=== PATIENT | female | born 1975 | race Caucasian/White ===

== ENCOUNTER 2017-08-19 11:49 | Outpatient (CLI) | payer BC | END 2017-08-19 11:50 | disposition critical access hospital (66) | LOC: EMS 11:49 | PROVIDERS: ATTEND Surgery | DX: M54.5 Low back pain (principal); W18.30XA Fall on same level, unspecified, initial encounter; Y93.01 Activity, walking, marching and hiking; Y92.009 Unspecified place in unspecified non-institutional (private) residence as the place of occurrence of the external cause | CPT/HCPCS: A0425; A0429 ==

== ENCOUNTER 2017-08-19 12:28 | Emergency (ER) | payer BC ==
--- NOTE | 2017-08-19 14:32 | ED Physician Documentation ---
PD HPI BACK INJURY - Stated complaint Stated Complaint: GLF - History obtained from History obtained from: Patient - History of Present Illness Location: Lower Type of injury: Fall (she says she fell on way to bathroom this morning and felt pain in thoracolumbar area. Pain with movement and is unable to sit or stand without considerable pain. No leg weakness nor numbness. Has had prior compression fractures from bone mets due to stage 4 breast CA. She is due to be seen at [facility] in [facility] tomorrow for new chemo med and possible platelet transfusion. Has baseline back pain and takes oral dilaudid 2 mg 3-4 times daily. This is not helping the current new pain.) Where injury occurred: Home Timing - onset: Today (this morning) Timing - details: Abrupt onset Quality: Pain, Similar to prior episodes Worsened by: Moving Associated symptoms: No: Fever, Weakness, Numbness, Incontinent of urine Contributing factors: No: Anticoagulated (but has thrombocytopenia) Similar symptoms before: Diagnosis (compression fractures with injury due to spine mets. Has had rib fractures too.) Review of Systems Constitutional: denies: Fever Nose: denies: Rhinorrhea / runny nose, Congestion Throat: denies: Sore throat Cardiac: denies: Chest pain / pressure, Palpitations Respiratory: denies: Dyspnea, Cough GI: reports: Abdominal Swelling (feels some bloated). denies: Abdominal Pain, Nausea, Vomiting, Diarrhea : denies: Dysuria, Frequency Skin: denies: Abrasion (s), Laceration (s) Musculoskeletal: reports: Back pain Neurologic: reports: Generalized weakness. denies: Focal weakness, Numbness, Altered mental status, Headache, Head injury PD PAST MEDICAL HISTORY - Past Medical History Cardiovascular: None Respiratory: None Neuro: None Other Past Medical History: Pt has metastatic breast CA and bone CA - Present Medications Home Medications: Ambulatory Orders Medication Instructions Recorded Confirmed Cyclobenzaprine [Flexeril] 10 mg 08/19/17 Dexamethasone 2 mg 08/19/17 HYDROmorphone [Dilaudid] 2 mg 08/19/17 Lorazepam [Ativan] 0.5 mg 08/19/17 oxyCODONE ER [OxyCONTIN] 10 mg 08/19/17 - Allergies Allergies/Adverse Reactions: Allergies Allergy/AdvReac Type Severity Reaction Status Date / Time Latex, Natural Rubber Allergy Mild Rash Verified 08/19/17 12:41 Penicillins Allergy Mild Rash Verified 08/19/17 12:41 - Social History Does the pt smoke?: No Smoking Status: Never smoker PD ED PE NORMAL - Vitals Vital signs reviewed: Yes - General General: Alert and oriented X 3, Well developed/nourished - HEENT HEENT: Atraumatic, Pharynx benign - Neck Neck: Supple, no meningeal sign, No adenopathy - Cardiac Cardiac: RRR (tachycardic), No murmur - Respiratory Respiratory: Clear bilaterally, Other (no noted chestwall tenderness) - Abdomen Abdomen: Normal bowel sounds, Soft, Non tender, No organomegaly, Other (mild distension with decreased bowel sounds, and mild general tenderness. ) - Female Female : Deferred - Rectal Rectal: Deferred - Back Back: No CVA TTP, Other (tender in thoracolumbar area of spine/back. ) - Derm Derm: Warm and dry. No: Normal color (pallor) - Extremities Extremities: No tenderness to palpate, Normal ROM s pain, No edema - Neuro Neuro: Alert and oriented X 3, No motor deficit, Normal speech Eye Opening: Spontaneous Motor: Obeys Commands Verbal: Oriented GCS Score: 15 - Psych Psych: Normal mood Results - Vitals Vitals: Vital Signs - 24 hr 08/19/17 08/19/17 08/19/17 12:31 15:24 18:19 Temperature 36.7 C 36.3 C L Heart Rate 111 H 94 78 Respiratory 16 16 16 Rate Blood Pressure 125/86 H 127/91 H 108/76 O2 Saturation 94 95 96 08/19/17 08/19/17 08/19/17 19:00 19:30 20:00 Temperature Heart Rate 76 77 78 Respiratory 16 16 18 Rate Blood Pressure 111/76 111/77 109/82 H O2 Saturation 95 95 95 Oxygen O2 Source Room air - Labs Labs: Laboratory Tests 08/19/17 08/19/17 15:15 15:15 WBC 19.1 H RBC 2.98 L Hgb 8.6 L Hct 27.1 L MCV 91.0 MCH 28.8 MCHC 31.7 L RDW 24.8 H Plt Count 18 L* MPV 9.9 Neut # Not Reportable Lymph # Not Reportable Stevens # Not Reportable Eos # Not Reportable Baso # Not Reportable Absolute Nucleated RBC Not Reportable Total Counted 100 Band Neuts % (Manual) 4 Abnorm Lymph % (Manual) 0 Nucleated RBC % Not Reportable Neutrophils # (Manual) 16.4 H Lymphocytes # (Manual) 1.7 Monocytes # (Manual) 1.0 Eosinophils # (Manual) 0.0 Basophils # (Manual) 0.0 Nucleated RBCs 21 Differential Comment MANUAL DIFFERENTIAL Manual Slide Review Indicated WBC Morphology TOXIC GRANULATION Platelet Estimate DECREASED (<130,000) Platelet Morphology RARE GIANT PLATELETS RBC Morph Micro Appear 1+ SPHEROCYTES Sodium 139 Potassium 4.3 Chloride 108 Carbon Dioxide 24 Anion Gap 7.0 BUN 20 Creatinine 0.8 Estimated GFR (MDRD) 79 L Glucose 188 H Calcium 7.9 L Total Bilirubin 0.8 AST 152 H ALT 118 H Alkaline Phosphatase 256 H Total Protein 5.1 L Albumin 2.2 L Globulin 2.9 Albumin/Globulin Ratio 0.8 L Lipase 20 L - Rads (name of study) thoracolumbar spine CT Radiology: Prelim report reviewed, Final report received (compression fractures likely old at T5 and L1. endplate abnormal at T11/T12 c/w likely newmild compression fractures. ) PD MEDICAL DECISION MAKING - ED course Complexity details: reviewed results, re-evaluated patient (still with considerable pain with ROM. 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 Blandon (?), who talked with Hospitalist Dr. Fletcher, and they accept transfer, wishing the patient to go through the ER to evaluate after transfer. I talked with EDMD, to inform of the plan. ) Departure - Departure Disposition: 02 Transfer Acute Care Hosp Clinical Impression: Intractable back pain, Metastatic breast cancer Thoracic compression fracture Qualifiers: Encounter type: initial encounter Fracture type: closed Qualified Code(s): S22.000A - Wedge compression fracture of unspecified thoracic vertebra, initial encounter for closed fracture Fall from slip, trip, or stumble Qualifiers: Encounter type: initial encounter Qualified Code(s): W01.0XXA - Fall on same level from slipping, tripping and stumbling without subsequent striking against object, initial encounter Condition: Stable Record reviewed to determine appropriate education?: Yes Discharge Date/Time: 08/19/17 20:44
[2017-08-19] MEDS ORDERED: LORazepam 2 MG/ML VIAL IVP STA (14:47)
[2017-08-19] MEDS ORDERED: HYDROmorphone 2 MG/ML VIAL IVP STA ×2 (14:47→20:30)
[2017-08-19] MEDS ORDERED: KETOROLAC 60 MG/2 ML VIAL IVP STA (14:48)
[2017-08-19 15:36] LABS: BASOPHILS % (AUTO) 0.4 %; EOSINOPHILS % (AUTO) 0.1 %; HGB - HEMOGLOBIN 8.6 g/dL (12.0-16.0); LYMPHOCYTES % (AUTO) 9.7 %; MEAN CORPUSCULAR HEMOGLOBIN 28.8 pg (27.0-31.0); MEAN CORPUSCULAR HGB CONC 31.7 g/dL (32.0-36.0); MEAN PLATELET VOLUME 9.9 fL (7.9-10.8); MONOCYTES % (AUTO) 9.8 %; RED BLOOD COUNT 2.98 10^6/uL (4.20-5.40); RED CELL DISTRIBUTION WIDTH 24.8 % (12.0-15.0); WHITE BLOOD COUNT 19.1 x10^3/uL (4.8-10.8)
[2017-08-19 15:48] LABS: ALBUMIN 2.2 g/dL (3.2-5.5); ALBUMIN/GLOBULIN RATIO 0.8 (1.0-2.2); BILIRUBIN,TOTAL 0.8 mg/dL (0.2-1.0); CALCIUM 7.9 mg/dL (8.5-10.3); CREATININE 0.8 mg/dL (0.4-1.0); TOTAL PROTEIN 5.1 g/dL (6.7-8.2)
[2017-08-19 15:53] LABS: PLT - PLATELET COUNT 18 10^3/uL (130-450)
[2017-08-19 15:55] LABS: ABNORMAL LYMPHS % (MANUAL) 0 %; BAND NEUTROPHILS % (MANUAL) 4 %; LYMPHOCYTES # (MANUAL) 1.7 10^3/uL (1.5-3.5); LYMPHOCYTES % (MANUAL) 9 %; NEUTROPHILS # (MANUAL) 16.4 10^3/uL (1.5-6.6); NEUTROPHILS % (MANUAL) 82 %
[2017-08-19 15:56] LABS: PLATELET MORPHOLOGY RARE GIANT PLATELETS (NORMAL)
[2017-08-19 15:57] LABS: DIFFERENTIAL COMMENT MANUAL DIFFERENTIAL; PLATELET ESTIMATE, MANUAL DECREASED (<130,000) (NORMAL)
--- NOTE | 2017-08-19 16:29 | CT Report ---
EXAM: CT THORACIC SPINE WITHOUT CONTRAST EXAM DATE: 08/19/2017 03:46 PM. CLINICAL HISTORY: Fall with thoracolumbar pain. History of metastatic disease and compression fractur e. COMPARISONS: None. TECHNIQUE: Thin-section axial images were acquired of the thoracic spine from C7 to L1 without contra st. Post-processing: Coronal and sagittal reformats. Other: None. IV Contrast: None. In accordance with CT protocol optimization, one or more of the following dose reduction techniques w ere utilized for this exam: automated exposure control, adjustment of mA and/or KV based on patient s ize, or use of iterative reconstructive technique. FINDINGS: Bones: There is extensive heterogeneity of the axial skeleton with numerous areas of lucency and scle rosis consistent with widespread metastatic disease. This involves essentially the entire thoracic sp ine, multiple ribs and the sternum. There is decreased height of the T5 vertebral body with loss of h eight near 25%. There is irregularity of the superior endplate although without definite pedicle invo lvement. No bony retropulsed fragments seen. At the T11 level there is some irregularity of the superior endplate without significant loss of heig ht. Additionally there is irregularity of the superior endplate of T12 without significant loss of he ight. Note is made of erosive changes at the level the posterior cortex of T10 and T11 although witho ut gross soft tissue involvement of the spinal canal. Note that MRI of the thoracic spine would be fa r more sensitive for this diagnosis. Disk Levels/Facets: Minimal osteophytes with mild disk space narrowing at T5-T6. Other: Left-sided peripheral catheter extends to the distal superior vena cava. Some hazy groundglass opacities are present within the right upper lobe as well as some dependent atelectasis. IMPRESSION: 1. Extensive heterogeneity of the axial skeleton consistent with widespread bony metastatic disease. 2. Age-indeterminate fracture of T5 with loss of height near 25%. No bony retropulsed fragments. 3. Irregularity of the superior endplates of T11 and T12 suspicious for age-indeterminate compression fractures. No significant loss of height. [facility] Referring Provider Line: [phone] SITE ID: [id number]
--- NOTE | 2017-08-19 16:34 | CT Report ---
EXAM: CT LUMBAR SPINE WITHOUT CONTRAST EXAM DATE: 08/19/2017 03:46 PM. CLINICAL HISTORY: Fall with new pain at thoracolumbar area. COMPARISONS: None. TECHNIQUE: Thin-section axial images were acquired of the lumbar spine from T12 to S1 without contras t. Post-processing: Coronal and sagittal reformats. Other: None. In accordance with CT protocol optimization, one or more of the following dose reduction techniques w ere utilized for this exam: automated exposure control, adjustment of mA and/or KV based on patient s ize, or use of iterative reconstructive technique. FINDINGS: Alignment: No scoliosis or spondylolisthesis. Bones: There is diffuse lucency and sclerosis throughout the lumbosacral spine consistent with widesp read metastatic disease. There is decreased height of the L1 vertebral body with loss of height 25% a nteriorly. No adjacent hematoma seen. No other definite fractures seen. Disk Levels/Facets: T12-L1: Unremarkable. L1-L2: Unremarkable. L2-L3: Unremarkable. L3-L4: Unremarkable. L4-L5: Unremarkable. L5-S1: Slight facet hypertrophy without significant stenosis. Other: Mild splenomegaly. Moderate bladder distention. IMPRESSION: 1. Widespread metastatic disease throughout the axial skeleton. 2. Compression type fracture of the L1 vertebral body, likely old. [facility] Referring Provider Line: [phone] SITE ID: [id number]
[2017-08-19 20:44] VITALS: BP 109/82
== END 2017-08-19 20:44 | disposition short-term general hospital (02) ==
LOC: ED 12:28
DX: S22.000A Wedge compression fracture of unspecified thoracic vertebra, initial encounter for closed fracture (principal); C50.919 Malignant neoplasm of unspecified site of unspecified female breast; C79.51 Secondary malignant neoplasm of bone; W01.0XXA Fall on same level from slipping, tripping and stumbling without subsequent striking against object, initial encounter; Y92.009 Unspecified place in unspecified non-institutional (private) residence as the place of occurrence of the external cause
CPT/HCPCS: 36415; 72128; 72131; 80053; 83690; 85025; 96374; 96375; 96376; 99284; J1170; J2060